=== PATIENT | female | born 1960 | race Caucasian/White ===

== ENCOUNTER → 2018-01-16 10:50 | Outpatient (CLI) | payer MEDICARE, MEDICAID, SELFPAY ==
[2018-01-16 12:20] LABS: Add Manual Diff / Slide Review NO; Basophils Percent Auto 0.8 % (0-2); Eosinophils Percent Auto 2.5 % (2-4); Hematocrit 40.3 % (36-46); Hemoglobin 13.6 g/dL (12.0-16.0); Lymphocytes Percent Auto 20.1 % (25-40); Mean Corpuscular HGB Conc 33.8 % (30-36); Mean Corpuscular Hemoglobin 31.3 PG (26-34); Mean Corpuscular Volume 92.6 fL (80-100); Monocytes Percent Auto 5.1 % (3-14); Neutrophils Absolute Auto 8200 /uL (3000-5900); Neutrophils Percent Auto 71.5 % (50-75); Platelet Count 273 X10^3/uL (150-400); Red Blood Cell Count 4.35 X10^6/uL (4.0-5.2); Red Cell Distribution Width 13.5 % (11.6-14.8); White Blood Cell Count 11.4 X10^3/uL (4.5-11.0)
[2018-01-16 12:57] LABS: Alanine Aminotransferase 19 IU/L (9-52); Albumin 4.9 g/dL (3.5-5.0); Albumin Globulin Ratio 1.9 (1.0-2.8); Alkaline Phosphatase 80 U/L (38-126); Aspartate Aminotransferase 12 IU/L (14-36); Bilirubin Total 0.4 mg/dL (0.2-1.3); Blood Urea Nitrogen 26 mg/dL (7-17); Calcium 10.2 mg/dL (8.4-10.2); Carbon Dioxide 23 mmol/L (22-32); Chloride 104 mmol/L (98-107); Cholesterol 130 mg/dL (140-199); Estimated Glomerular Filt Rate 42.1 mL/min (>60); Globulin 2.6 g/dL (1.7-4.1); Glucose 87 mg/dL (70-100); HDL Cholesterol 43 mg/dL (40-60); HEMOLYSIS < 15 (0-50); LDL Cholesterol Calculated 63 mg/dL (<100); Potassium 4.6 mmol/L (3.4-5.1); Sodium 145 mmol/L (137-145); Total Protein 7.5 g/dL (6.3-8.2); Triglycerides 118 mg/dL (35-150)
[2018-01-16 13:06] LABS: Hemoglobin A1C% w Est Avg Glu 5.8 % (4.0-6.0)
[2018-01-16 14:02] LABS: Appearance Urine UA SL CLOUDY; Bilirubin Urine UA NEGATIVE (NEGATIVE); Color Urine UA YELLOW; Glucose Urine UA NEGATIVE (Normal); Ketones Urine UA TRACE (NEGATIVE); Leukocyte Esterase Urine UA 2+ (NEGATIVE); Nitrite Urine UA NEGATIVE (Negative); Occult Blood Urine UA TRACE-LYSED (Negative); Protein Urine UA NEGATIVE (Negative); Urobilinogen Urine UA 0.2 E.U./dL (0.2)
[2018-01-16 14:32] LABS: RBC Urine 0-1/HPF (0-5/HPF); WBC Urine 10-30/HPF (0-5/HPF)
[2018-01-16 14:33] LABS: Bacteria Urine Many (>30); Culture Indicated Urine Specimen Cultured; Hyaline Casts Urine 5-10/LPF; Squamous Epithelial Cell Urine 1-5 /HPF
== END ==
PROVIDERS: PCP Family Medicine; Visit Provider Family Medicine
DX: D50.0 Iron deficiency anemia secondary to blood loss (chronic) (principal); E03.9 Hypothyroidism, unspecified; R73.09 Other abnormal glucose
CPT/HCPCS: 36415; 80053; 80061; 81003; 81015; 83036; 85025; 87086

== ENCOUNTER → 2018-03-19 10:54 | Outpatient (CLI) | payer MEDICARE, MEDICAID, SELFPAY ==
--- NOTE | 2018-03-19 | DI.CT.S_ITS ---
PROCEDURE: CT LE LT W CON INDICATIONS: NONDISPLACED INTERTROCH FRACTURE LEFT FEMUR TECHNIQUE: Noncontrast 3 mm axial sections acquired through the bony pelvis. Additional 3 mm axial sections acquired through the symptomatic hip joint, with coronal and sagittal reformats. COMPARISON: [facility], CR, XR FEMUR 2+ VIEWS LEFT, 03/07/2018, 16:30. FINDINGS: Image quality: Diagnostic. Bones: Postoperative changes are again evident related to an upper reduction and internal fixation procedure involving the proximal left femoral intertrochanteric fracture. The fracture line demonstrates sclerosis. No residual lucency is appreciated, suggesting healing. No acute or new fractures are evident. There no dislocations. Bone fragments within the region of the joint space is present, particularly noted along the anterior margin of the left hip joint which may represent small avulsed bone fragments from the greater trochanter. Operative changes are again noted related to an open reduction and internal fixation procedure involving the intertrochanteric fracture. A long trochanteric nail is secured in place by single distal interlocking screw and 2 proximal hip screw devices. The hardware appears intact. Soft tissues: The soft tissues overlying the left hip/thigh region are essentially within normal limits. No soft tissue masses or drainable fluid collections are evident. There likely is a left hip effusion. Included portions of the pelvis are grossly unremarkable. No significant atrophy of the muscles of the thigh are evident. IMPRESSION: Anatomic alignment of the healing/healed fracture involving the proximal left intertrochanteric femur fracture, status post ORIF. Dictated by: Mick Mosqueda M.D. on 03/19/2018 at 11:15 Approved by: Mick Mosqueda M.D. on 03/19/2018 at 11:18
== END ==
PROVIDERS: PCP Family Medicine; Visit Provider Orthopaedic Surgery
DX: S72.142D Displaced intertrochanteric fracture of left femur, subsequent encounter for closed fracture with routine healing (principal)
CPT/HCPCS: 73700

== ENCOUNTER → 2018-05-05 10:33 | Outpatient (CLI) | payer MEDICARE, MEDICAID, SELFPAY ==
--- NOTE | 2018-05-05 | DI.MRI.S_ITS ---
PROCEDURE: MR LUMBAR SPINE WO CON INDICATIONS: Lumbar pain with sciatica, right side TECHNIQUE: Noncontrast sagittal T1 spin echo and T2 fast echo, sagittal STIR, axial T1 and T2 fast spin echo through the lumbar spine. In cases with scoliosis, additional coronal T2 fast spin echo may be performed. COMPARISON: [facility], CT, CHEST/ABD/PEL WITH CONTRAST, 05/11/2017, 20:25. FINDINGS: Image quality: Excellent. Alignment and Curvature: There is normal bony alignment. Bone Marrow: Marrow is of normal overall signal. No acute vertebral body compression fractures. Spinal Cord: Conus medullaris terminates at the L1 to level. Visualized cord demonstrates normal signal and size. Paraspinous Soft Tissues: No paravertebral masses. L1-L2: Normal appearance. L2-L3: Mild diffuse disc bulge and bilateral facet arthrosis is seen, no significant canal stenosis or neuroforaminal narrowing. L3-L4: There is broad-based disc bulge and bilateral facet arthrosis with mild central canal stenosis and bilateral neuroforaminal narrowing. L4-L5: Broad-based disc bulge and bilateral facet arthrosis is seen with mild central canal stenosis and mild bilateral neuroforaminal narrowing. L5-S1: Diffuse disc bulge and bilateral facet arthrosis is seen with no significant canal stenosis or neuroforaminal narrowing. IMPRESSION: 1. Degenerative disc bulge and bilateral facet arthrosis at L2-3 through L5-S1 levels with mild central canal stenosis and bilateral neuroforaminal narrowing noted at L3-4 and L4-5 levels. 2. No marrow edema. No compression fracture or spondylolisthesis. Dictated by: Tan Peters M.D. on 05/07/2018 at 9:07 Approved by: Tan Peters M.D. on 05/07/2018 at 9:18
== END ==
PROVIDERS: PCP Family Medicine; Visit Provider Physical Medicine & Rehabilitation
DX: M51.16 Intervertebral disc disorders with radiculopathy, lumbar region (principal); M47.26 Other spondylosis with radiculopathy, lumbar region; M47.27 Other spondylosis with radiculopathy, lumbosacral region; M48.061 Spinal stenosis, lumbar region without neurogenic claudication
CPT/HCPCS: 72148

== ENCOUNTER → 2018-05-25 11:36 | Outpatient (CLI) | payer MEDICARE, MEDICAID, SELFPAY ==
[2018-05-25 12:58] LABS: Add Manual Diff / Slide Review NO; Basophils Absolute Auto 100 /uL (0-100); Basophils Percent Auto 0.6 % (0-2); Eosinophils Absolute Auto 100 /uL (0-450); Eosinophils Percent Auto 0.8 % (2-4); Hematocrit 39.2 % (36-46); Hemoglobin 13.1 g/dL (12.0-16.0); Lymphocytes Absolute Auto 2700 /uL (1100-4500); Lymphocytes Percent Auto 21.4 % (25-40); Mean Corpuscular HGB Conc 33.4 % (30-36); Mean Corpuscular Hemoglobin 31.8 PG (26-34); Monocytes Absolute Auto 800 /uL (0-900); Monocytes Percent Auto 6.4 % (3-14); Neutrophils Absolute Auto 9100 /uL (1500-7000); Neutrophils Percent Auto 70.8 % (50-75); Platelet Count 290 X10^3/uL (150-400); Red Blood Cell Count 4.12 X10^6/uL (4.0-5.2); Red Cell Distribution Width 13.6 % (11.6-14.8); White Blood Cell Count 12.8 X10^3/uL (4.5-11.0)
--- NOTE | 2018-05-25 13:21 | DI.MRI.S_ITS ---
PROCEDURE: MR CERVICAL SPINE WO CON INDICATIONS: Eval TECHNIQUE: Noncontrast sagittal T1 spin echo and T2 fast spin echo, sagittal STIR, foraminal oblique sagittal T2 fast spin echo, and axial gradient echo or T2 fast spin echo through the cervical spine. COMPARISON: [facility], CT, C-SPINE WITHOUT CONTRAST, 05/11/2017, 20:25. FINDINGS: Image quality: Excellent. Alignment and Curvature: There is trace retrolisthesis of C4 on C5. Bone Marrow: Marrow demonstrates normal overall signal. Mild reactive endplate changes are present at C5-6. Schmorl's node is present along the superior endplate of T10. Spinal Cord: Visualized spinal cord has normal size and signal. No cerebellar tonsillar herniation. Paraspinous Soft Tissues: No paravertebral masses. Prevertebral soft tissues are normal in thickness. Discs: Severe desiccation is present at C4-5 and C5-6, mild present remainder of the cervical spine. C2-C3: Minimal disc bulge without spinal stenosis. Minimal right foraminal narrowing. C3-C4: Mild disc bulge with moderate to severe left and moderate right foraminal narrowing with uncovertebral hypertrophy. C4-C5: Mild disc bulge with moderate to severe spinal stenosis. Severe left and moderate to severe right foraminal narrowing with uncovertebral hypertrophy. C5-C6: Mild disc bulge with severe spinal stenosis and mild flattening of the cord. There is mild compromise of the right lateral recess secondary to asymmetric bulge. Severe bilateral foraminal narrowing with uncovertebral hypertrophy. C6-C7: Mild disc bulge with small superimposed posterior central protrusion. There is mild/moderate spinal stenosis with mild bilateral foraminal narrowing. C7-T1: No disc bulge, spinal stenosis or foraminal narrowing. IMPRESSION: 1. Multilevel disc bulges, spinal stenosis and foraminal narrowing. 2. Spinal stenosis is most prominent at C5-6 secondary to disc bulge. 3. Prominent multilevel foraminal narrowing most prominent at C4-5 and C5-6 secondary to uncovertebral arthropathy. Dictated by: Christie Roa M.D. on 05/25/2018 at 14:01 Approved by: Christie Roa M.D. on 05/25/2018 at 15:08
== END ==
PROVIDERS: PCP Family Medicine; Visit Provider Physical Medicine & Rehabilitation
DX: M50.11 Cervical disc disorder with radiculopathy, high cervical region (principal); M48.02 Spinal stenosis, cervical region; N18.9 Chronic kidney disease, unspecified
CPT/HCPCS: 36415; 72141; 85025

== ENCOUNTER → 2018-08-22 07:31 | Outpatient (CLI) | payer MEDICARE, MEDICAID, SELFPAY ==
[2018-08-22 08:21] LABS: Add Manual Diff / Slide Review NO; Basophils Absolute Auto 100 /uL (0-100); Basophils Percent Auto 0.8 % (0-2); Eosinophils Absolute Auto 500 /uL (0-450); Eosinophils Percent Auto 4.5 % (2-4); Hematocrit 38.3 % (36-46); Hemoglobin 12.8 g/dL (12.0-16.0); Lymphocytes Absolute Auto 2700 /uL (1100-4500); Lymphocytes Percent Auto 26.1 % (25-40); Mean Corpuscular HGB Conc 33.4 % (30-36); Mean Corpuscular Hemoglobin 32.3 PG (26-34); Mean Corpuscular Volume 96.8 fL (80-100); Monocytes Absolute Auto 500 /uL (0-900); Monocytes Percent Auto 5.2 % (3-14); Neutrophils Absolute Auto 6600 /uL (1500-7000); Neutrophils Percent Auto 63.4 % (50-75); Platelet Count 289 X10^3/uL (150-400); Red Blood Cell Count 3.95 X10^6/uL (4.0-5.2); Red Cell Distribution Width 14.5 % (11.6-14.8); White Blood Cell Count 10.5 X10^3/uL (4.5-11.0)
[2018-08-22 08:22] LABS: Appearance Urine UA CLEAR; Bilirubin Urine UA NEGATIVE (NEGATIVE); Color Urine UA YELLOW; Glucose Urine UA NEGATIVE (Negative); Ketones Urine UA NEGATIVE (NEGATIVE); Leukocyte Esterase Urine UA 1+ (NEGATIVE); Nitrite Urine UA NEGATIVE (Negative); Occult Blood Urine UA NEGATIVE (Negative); Protein Urine UA NEGATIVE (Negative); Urobilinogen Urine UA 0.2 E.U./dL (0.2)
[2018-08-22 08:26] LABS: RBC Urine None Seen (0-5/HPF)
[2018-08-22 08:29] LABS: Hemoglobin A1C% w Est Avg Glu 5.6 % (4.0-6.0)
[2018-08-22 08:33] LABS: Amorphous Sediment Urine 1+; Bacteria Urine Many (>30); Culture Indicated Urine Cult Not Indicated; Squamous Epithelial Cell Urine 10-30 /HPF (0-5/HPF); WBC Urine 1-5/HPF (0-5/HPF)
[2018-08-22 08:44] LABS: Alanine Aminotransferase 12 IU/L (9-52); Albumin 4.7 g/dL (3.5-5.0); Albumin Globulin Ratio 1.6 (1.0-2.8); Alkaline Phosphatase 70 U/L (38-126); Aspartate Aminotransferase 17 IU/L (14-36); Bilirubin Total 0.5 mg/dL (0.2-1.3); Blood Urea Nitrogen 27 mg/dL (7-17); Calcium 9.6 mg/dL (8.4-10.2); Carbon Dioxide 23 mmol/L (22-32); Chloride 97 mmol/L (98-107); Cholesterol 108 mg/dL (140-199); Estimated Glomerular Filt Rate 35.5 mL/min (>60); Globulin 2.9 g/dL (1.7-4.1); Glucose 88 mg/dL (70-100); HDL Cholesterol 40 mg/dL (40-60); HEMOLYSIS < 15 (0-50); LDL Cholesterol Calculated 50 mg/dL (<100); Potassium 4.9 mmol/L (3.4-5.1); Sodium 135 mmol/L (137-145); Total Protein 7.6 g/dL (6.3-8.2); Triglycerides 91 mg/dL (35-150)
[2018-08-22 09:11] LABS: Thyroid Stimulating Hormone 3.63 uIU/mL (0.47-4.68)
== END ==
PROVIDERS: PCP Family Medicine; Visit Provider Family Medicine
DX: E03.9 Hypothyroidism, unspecified (principal); E11.9 Type 2 diabetes mellitus without complications; E78.5 Hyperlipidemia, unspecified; N18.9 Chronic kidney disease, unspecified; I12.9 Hypertensive chronic kidney disease with stage 1 through stage 4 chronic kidney disease, or unspecified chronic kidney disease
CPT/HCPCS: 36415; 80053; 80061; 81003; 81015; 83036; 84443; 85025

== ENCOUNTER → 2018-08-29 07:08 | Outpatient (CLI) | payer MEDICARE, MEDICAID, SELFPAY ==
--- NOTE | 2018-08-29 07:10 | DI.NM.S_ITS ---
PROCEDURE: NM ZEV PERF SPECT R&S PHARM Rest and pharmacological stress myocardial perfusion SPECT with gated imaging and ejection fraction RADIOPHARMACEUTICAL: 23.9 mCi Tc-99m tetrafosmin IV at rest and 25.7 mCi Tc-99m tetrafosmin IV at peak effect of pharmacological stress. [id number] was performed. INDICATIONS: COPD, Tabacco user, Chest pain, CAD TECHNIQUE: Radiopharmaceutical was injected at peak stress test, and also at rest. SPECT images were obtained. SPECT myocardial perfusion images were displayed in short axis, horizontal long axis, and vertical long axis views. Gated images were reviewed using SideStep software. COMPARISON: None. CARDIAC STRESS: A pharmacologic stress test was performed under the supervision of an attending staff, using an infusion of Lexiscan . Hemodynamic data: There is normal heart rate response to pharmacologic stress. Blood pressure was not recorded at peak. Symptoms: The patient denied anginal chest pain. Aminophylline: Not given. EKG: No diagnostic changes of ischemia; no ectopy. FINDINGS: Raw data: There is good myocardial uptake of radiotracer. No significant motion artifacts. Yjtl-xx-izdrn ratio is 0.26 (normal is less than 0.38 for tetrafosmin tracer). Left ventricle function: Gated images demonstrate normal left ventricular wall thickening. No segmental wall motion abnormalities. No transient ischemic dilation; TID is 0.72 (normal less than 1.3). Left ventricle resting end diastolic volume is 64 mL. Left ventricle stress ejection fraction is >75% ; normal range is above 45%. Myocardial perfusion: There is a very small apical and apical septal defect on supine images which completely resolves on prone imaging consistent with breast attenuation artifact. Otherwise there is normal distribution of activity in the left ventricular myocardium. No fixed or reversible perfusion defects. IMPRESSION: Normal myocardial perfusion study without evidence of ischemia or scar. Small, hyperdynamic left ventricular cavity. Low-risk study. This is similar to the prior myocardial perfusion study on 04/05/2017. Dictated by: Gregory Callaway M.D. on 08/30/2018 at 18:04 Approved by: Gregory Callaway M.D. on 08/30/2018 at 18:09
--- NOTE | 2018-08-29 08:43 | PM.TREADMILL ---
Cardiac Stress Test Report Referral & Results Date Patient Seen: 08/29/18 Time Patient Seen: 08:30 Requesting provider: Yari Celestin Indication: Chest pain Rest ECG: NSR Procedure Note: After both written and verbal informed consent the patient had an IV started by the diagnostic imaging RN, and then was hooked up to the treadmill monitoring system. The Lexiscan material, and then the Cardiolite tracer, were administered sequentially. The patient was unable to tolerate walking on the treadmill for more than about 30 seconds, and we converted her to a resting Lexiscan. An additional 3 min was spent monitoring the patient while supine on the gurney. The patient had a normal response to all infused materials. Impression: Successful Lexiscan. Will wait perfusion imaging. Please note: Actual ECG tracings can be found in the PACS system.
== END ==
PROVIDERS: PCP Family Medicine; Referring Provider Orthopaedic Surgery Orthopaedic Surgery of the Spine; Visit Provider Family Medicine
DX: R07.9 Chest pain, unspecified (principal); I25.118 Atherosclerotic heart disease of native coronary artery with other forms of angina pectoris; J44.9 Chronic obstructive pulmonary disease, unspecified; Z72.0 Tobacco use
CPT/HCPCS: 78452; 93016; 93017; 93018; A9502; J2785

== ENCOUNTER → 2018-09-24 10:14 | Outpatient (CLI) | payer MEDICARE, MEDICAID, SELFPAY ==
[2018-09-24 11:37] LABS: Add Manual Diff / Slide Review NO; Basophils Absolute Auto 100 /uL (0-100); Basophils Percent Auto 0.5 % (0-2); Eosinophils Absolute Auto 400 /uL (0-450); Hematocrit 37.8 % (36-46); Hemoglobin 12.9 g/dL (12.0-16.0); Lymphocytes Absolute Auto 2300 /uL (1100-4500); Lymphocytes Percent Auto 22.9 % (25-40); Mean Corpuscular HGB Conc 34.1 % (30-36); Mean Corpuscular Hemoglobin 32.3 PG (26-34); Mean Corpuscular Volume 94.7 fL (80-100); Monocytes Absolute Auto 600 /uL (0-900); Monocytes Percent Auto 5.6 % (3-14); Neutrophils Absolute Auto 6700 /uL (1500-7000); Platelet Count 264 X10^3/uL (150-400); Red Cell Distribution Width 13.8 % (11.6-14.8)
[2018-09-24 11:54] LABS: BUN Creatinine Ratio 24.6 (6-22); Blood Urea Nitrogen 32 mg/dL (7-17); Calcium 9.3 mg/dL (8.4-10.2); Carbon Dioxide 28 mmol/L (22-32); Chloride 102 mmol/L (98-107); Estimated Glomerular Filt Rate 41.9 mL/min (>60); Glucose 111 mg/dL (70-100); HEMOLYSIS < 15 (0-50); Potassium 4.6 mmol/L (3.4-5.1); Sodium 139 mmol/L (137-145)
[2018-09-24 14:53] LABS: Hemoglobin A1C% w Est Avg Glu 5.7 % (4.0-6.0)
== END ==
PROVIDERS: PCP Family Medicine; Visit Provider Orthopaedic Surgery Orthopaedic Surgery of the Spine
DX: R73.9 Hyperglycemia, unspecified (principal); Z51.81 Encounter for therapeutic drug level monitoring; E61.1 Iron deficiency; Z01.818 Encounter for other preprocedural examination
CPT/HCPCS: 36415; 80048; 83036; 85025; 93005

== ENCOUNTER 2018-10-10 05:57 | Inpatient (IN) | payer MEDICARE, MEDICAID, SELFPAY ==
[2018-10-02 12:55] VITALS: BMI 29.0
[2018-10-10] VITALS (17 sets, daily range): BP systolic 120–160; BP diastolic 61–118; PULSE 65–108; RESP 12–20; TEMP 36.2–37; O2SAT 88–98; BMI 29.9
--- NOTE | 2018-10-10 | DI.RAD.S_ITS ---
PROCEDURE: XR CERVICAL SPINE 2V OR 3V INDICATIONS: C4-5, C5-6 ACDF TECHNIQUE: 3 intraoperative fluoroscopic spot view(s) of the cervical spine were acquired. COMPARISON: None. FINDINGS: Anterior cervical fusion hardware is seen from C4-C6 in expected position. Support tubes and monitoring wires are present. IMPRESSION: Expected intraoperative appearance of anterior cervical spine fusion. Dictated by: Lauren Brown M.D. on 10/10/2018 at 10:59 Approved by: Lauren Brown M.D. on 10/10/2018 at 11:01
[2018-10-10] MEDS: LACTATED RINGERS 1,000 ML 42 ML IV ×2 (07:06→09:26)
[2018-10-10] MEDS: MIDAZOLAM 2 MG/2 ML VIAL IV (07:43)
[2018-10-10] MEDS: CLINDAMYCIN 600 MG/50 ML PIGGYBACK 50 MG IV (07:45)
--- NOTE | 2018-10-10 08:09 | PM.PREOP ---
Pre-operative Note Interval Note History & Physical reviewed/Exam performed by Physician: Yes Changes to H&P: No
[2018-10-10] MEDS: ACETAMINOPHEN IV 1,000 MG/100 ML VIAL 400 MG IV (08:20)
--- NOTE | 2018-10-10 08:22 | SUR.OPER ---
Supine, head on gel donut. Arms padded with gel pads, tucked at sides, towel roll under shoulders. Safety belt at thigh. Legs uncrossed.
--- NOTE | 2018-10-10 10:31 | P.OP_ITS ---
Operative Date/Time/Diagnoses Date of procedure: 10/10/18 Time of procedure: 07:54 Pre-op diagnosis: 1. C4-5, C5-6 spinal stenosis 2. C4-5, C5-6 spondylosis with radiculopathy Post-op diagnosis: same Procedure & Clinicians Procedure: 1. C4-5, C5-6 anterior cervical diskectomy and fusion 2. C4-5, C5-6 anterior interbody cage placement 3. C4-5, C5-6 anterior instrumentation with plate and screw placement in C4, C5 and C6 vertebrae 4. Utilization of microsurgical technique and operating microscope Same procedure as scheduled: Yes Indications: Patient has been having chronic neck pain and worsening cervical radiculopathy. Patient failed multiple conservative management with worsening pain weakness and numbness in her upper extremity. Patient has been having difficulty performing activity of daily living. After discussing risks benefits of treatment options, patient elected proceed with surgery. Surgeon: Elo Asif Processor Helper: Anastasiya Mustafa'Brien Click Yes if Unassisted: No Anesthesia Type: General Operative Notes Closure Type: primary Specimen(s): none sent Prosthetic devices, grafts, tissues, transplants, or devices: Globus extend plate, PEEK cages, screws Applied: catheter Estimated Blood Loss (mL): 20 Blood products transfused: none Procedure in detail: Patient was seen in the preoperative area. Risks and benefits of the surgery was discussed with the patient. Operative consent was obtained and placed in the chart. Patient was then taken to the operative room. Prophylactic antibiotic was given less than 0.5 hr prior to skin incision. General anesthesia was administered. Patient was placed into a supine position on her radiolucent table. Bilateral shoulders were taped down to allow proper C- arm imaging. Anterior cervical area was prepped and draped in a sterile fashion. Time-out was performed at this time. Using lateral C-arm imaging, the level between C4 and C6 was identified and marked on patient's neck. A oblique incision from midline towards medial border of sternocleidomastoid muscle was made. The platysma muscle was incised in line with skin incision. Metzenbaum scissor was used to develop the plane between the medial border of sternocleidomastoid d and the strap muscles medially. The carotid sheath and its contents were identified and protected behind the hand- held retractor during the entire case. The plane between the carotid sheath and strap muscles was developed with Metzenbaum scissors. Dissection was made down to the level of the anterior cervical fascia. Longus colli muscle was incised on the anterior aspect of vertebral bodies bilaterally from C4-C6. Spinal needle was placed into the C4-6 disc space and confirmed with lateral C-arm imaging. Using microsurgical technique and operative microscope, anterior cervical diskectomy was performed at C4-5 and C5-6 level. This was done by removing the disc material, removing the anterior and posterior osteophytes posterior longitudinal ligaments along with performing bilateral foraminotomies at both levels. Patient was found to have severe central and foraminal stenosis at both levels. Patient's stenosis was fully decompressed after decompression was completed. After the diskectomy was completed, 2 anterior interbody cages were obtained. The cages were packed with DBM bone grafting material. One cage each along with the bone grafting material was then packed into the interbody spaces from C4-C6 with one cage into each interbody level. After the cages were placed, the anterior cervical plate was stabilized to the C4-C6 vertebrae using 2 screws at each each level. Total 6 screws were placed. After confirming placement of the hardware with AP and lateral C-arm imaging, the screws were locked into the plate using the locking mechanism and torque limiting screwdriver. After the hardware was placed and confirmed with AP and lateral C-arm imaging, the wound was irrigated with sterile normal saline. The platysma muscle and the subcutaneous tissue was closed with 2-0 Vicryl. The skin was closed with 4-0 Monocryl and Steri-Strips. Patient tolerated the procedure well. Patient was transferred recovery room in stable condition. There were no complications. Complications: none Condition: stable Disposition: PACU Plan for aftercare: Admit to inpatient hospital
[2018-10-10] MEDS: HYDROMORPHONE 2 MG INJ 0.25 MG IV ×3 (10:41→11:12)
[2018-10-10] MEDS: ALBUTEROL 2.5 MG/3 ML NEB (ADULT) INH (10:48)
--- NOTE | 2018-10-10 11:00 | SUR.PHASEI ---
Pt arrived mildly distresse, c/o pain, c/o trouble breathing. Albuterol inhaler used x2 per Dr. Damico. Lungs very tight with insp and exp rhonchi throughout. Albuterol neb provided. Pt able to nap intermittently.
[2018-10-10] MEDS: hydrOXYzine 50 MG/ML INJ 25 MG IM (11:06)
--- NOTE | 2018-10-10 11:14 | SUR.PHASEI ---
Verified ok to given pt vistaril with pharmacist
--- NOTE | 2018-10-10 11:31 | SUR.PHASEI ---
pt mostly dozing, rated pain 8/10. Report called to Chara. Bustamante notified/shown bruises to upper chest.
[2018-10-10] MEDS: OXYCODONE IR 5 MG TABLET PO ×4 (11:38→23:41)
--- NOTE | 2018-10-10 11:55 | SUR.PHASEI ---
Pt able to swallow applesauce without difficulty. Oxycodone provided. Pt transferred to the floor on 2l O2. VS stable. O2 sat 93% 2lNC. IV saline locked. Two small dark red spots and one light pink spot of drainage to neck drsg. Collar in place. Upper and lower dentures in place. Belongings bag with patient. Report to Katlin.
[2018-10-10] MEDS: SODIUM CHLORIDE 0.9% 1,000 ML 100 ML IV ×2 (14:06→23:53)
[2018-10-10] MEDS: INSULIN ASPART 100 UNIT/ML INSULN PEN SUBCUT ×2 (14:09→17:25)
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
--- NOTE | 2018-10-10 14:38 | PC.NURSE ---
Addendum entered by Katlin Alexandra R.N. 10/10/18 15:22: Pt refuses to have an ADA diet. States that she does not eat that kind of food. BS this afternoon 198. Resting comfortably, given percolone for discomfort. Original Note: Pt has a dressing to anterior neck with a small amount of bloody drainage. She is wearing a collar for comfort. Given 5mg of oxycodone for complaints of pain 11/27. Pt up now and working with physical therapy, she ambulated in the room and is now sitting up in chair comfortably. She has NS infusing at 100cc/hr and is tolerating well.
[2018-10-10] MEDS: GABAPENTIN 300 MG CAPSULE PO ×2 (14:43→20:56)
[2018-10-10] MEDS: CLINDAMYCIN 900 MG/50 ML PIGGYBACK 50 MG IV ×2 (16:01→23:52)
[2018-10-10] MEDS: HYDROMORPHONE 0.5 MG INJ IV ×2 (16:01→20:55)
[2018-10-10] MEDS: NICOTINE 14 PATCH 14 MG TOP (16:02)
[2018-10-10] MEDS: ONDANSETRON 4 MG/2 ML INJ IV (17:25)
[2018-10-10] MEDS: FLUTICASONE/SALMETEROL 250/50 60 PUFF DISKUS INH (20:56)
[2018-10-10] MEDS: DOCUSATE 100 MG CAPSULE PO (20:56)
[2018-10-10] MEDS: ATORVASTATIN 20 MG TABLET PO (20:56)
[2018-10-10] MEDS: SENNOSIDES 8.6 MG TABLET 17.2 MG PO (20:56)
[2018-10-10] MEDS: ACETAMINOPHEN 325 MG TABLET 650 MG PO (20:56)
--- NOTE | 2018-10-10 21:58 | PC.NURSE ---
Dee Dee shift note: Anterior cervical dressing changed as ordered, moderate amount of sanguineous saturation, scant noted to steri strips and intact. Dressing with non adherent dressing and secured with Tegaderm.
[2018-10-10] MEDS: hydrOXYzine pamoate 25 MG CAPSULE PO (23:40)
[2018-10-11] MEDS: OXYCODONE IR 5 MG TABLET PO ×2 (02:56→06:17)
[2018-10-11 03:00] VITALS: BP 135/85; PULSE 87; RESP 18; TEMP 36.5; O2SAT 95
[2018-10-11] MEDS: HYDROMORPHONE 0.5 MG INJ IV (03:53)
--- NOTE | 2018-10-11 04:51 | PC.NURSE ---
Assumed care of pt at 2300 on 10/10/18. Pt resting in bed during bedside hand-off. Drsg to Ant neck with small spot of sang drainage. Soft collar in place. CMS+. Medicating per may for post-op pain. Pt reports 5 mg oxycodone does not reduce pain level much. Medicating with IV Dilaudid for break-through pain. Amos removed at MN per pt request and nurse driven protocol. Up to bathroom to void since amos removal. 1 pa w/fww. Steady on feet. Calling appropriately for needs. Bed alarm on.
[2018-10-11] MEDS: FLUTICASONE/SALMETEROL 250/50 60 PUFF DISKUS INH (06:08)
[2018-10-11] MEDS: ALBUTEROL/IPRATROPIUM MDI 1 PUFF INH (06:08)
[2018-10-11] MEDS: ALBUTEROL HFA 60 PUFF/8 GM INH INH (06:09)
[2018-10-11] MEDS: ACETAMINOPHEN 325 MG TABLET 650 MG PO (06:16)
[2018-10-11] MEDS: hydrOXYzine pamoate 25 MG CAPSULE PO (06:17)
[2018-10-11 08:00] VITALS: BP 137/76; PULSE 75; RESP 18; TEMP 36.6; O2SAT 94
--- NOTE | 2018-10-11 08:28 | P.DS_ITS ---
History of Present Illness Date Patient Seen: 10/11/18 Time Patient Seen: 08:23 Chief complaint: Cervical Fusion Anterior Narrative: Hospital day 2, postop day 1 following C4-5, C5-6 ACDF with cage and anterior instrumentation by Dr. Asif. Patient remained stable postoperatively. Has noted some increased pain with movement. Has been getting oxycodone 5 mg but required Dilaudid IV for breakthrough pain. She states she is able to swallow well. She has had some improvement in arm pain since surgery but still notes tingling to her fingers. She was up with PT yesterday and did well. She does need to do stairs today before going home. She does have a roommate this going to be staying with her for the next week. Patient voiding well. Discharge Providers Date of admission: 10/10/18 05:57 Discharge Date: 10/11/18 Primary care physician: Yari Celestin DO Consults: 10/02/18 13:45 Consult to Respiratory Therapy Evaluate & Treat Comment: C3-6 fusion 10/10-Every day smoker, requests patch Physician Instructions: Evaluate and treat 10/10/18 11:58 Consult to Occupational Therapy Evaluate & Treat Comment: Physician Instructions: Evaluate and treat Consult to Physical Therapy Evaluate & Treat Comment: Physician Instructions: Evaluate and Treat Discharge provider: Varghese Rodríguez PA-C Summary Discharge Diagnosis: Status post C4-5, C5-6 ACDF, cage, anterior instrumentation Hospital Course: Patient brought to hospital on 10/10/2018 for above noted surgery. She remained stable postoperatively. Pain medication was adjusted. Patient progressed well with physical therapy. Ready for discharge home on postop day 1. Status at Discharge Cognitive/behavioral status at discharge: oriented Functional status at discharge: independent ambulation Overall status at discharge: patient is progressing back to baseline Time Spent with Patient Less than 30 minutes Exam Vital Signs (past 8 hours): - 10/11/18 03:00 10/11/18 08:00 Temperature 97.7 F 98 F Pulse Rate 87 75 Respiratory Rate 18 18 Blood Pressure 135/85 137/76 Pulse Oximetry 95 94 Oxygen Delivery Method Room Air Oxygen Flow Rate 0 Narrative Exam Narrative: Alert, oriented no acute distress resting in bed. Neck. Soft cervical collar in place. Dressing to left anterior neck is dry with slight area of shadowing. No signs of infection or inflammation. Arms. Graphic Coordinator strong and equal. Pulses symmetrical. Some slight decreased sensation to finger tips bilateral. Good strength on elbow flexion and extension and shoulder AB duction. Discharge Plan Discharge Plan Patient Disposition: Home Discharge comment: Discharge home today after cleared by PT. Patient to wear soft collar for the next 1-2 days and then may DC if doing well. Avoid excessive head movement. No lifting or carrying more than 5-10 lb. Discharge Med Rec/Prescriptions Prescriptions: New acetaminophen 325 mg Tablet 650 mg PO Q6HR PRN (Reason: Pain, Mild (1-3)) Qty: 30 RF: 0 hydroxyzine pamoate 25 mg Capsule 25 mg PO Q4HR PRN (Reason: Nausea And Vomiting) Qty: 20 RF: 0 oxycodone 10 mg tablet 10 mg PO Q4-6H PRN (Reason: pain) Qty: 30 RF: 0 Continued chromium picolinate 400 MCG tablet 3 tab PO QDAY Qty: 0 RF: 0 budesonide 0.5 mg/2 mL suspension for nebulization 0.5 mg INHALATION QDAY PRN (Reason: COPD) Qty: 1 RF: 3 albuterol sulfate [Ventolin HFA] 90 mcg/actuation HFA aerosol inhaler 1 puff INHALATION QIDP PRN (Reason: shortness of breath) Qty: 18 RF: 3 furosemide 20 mg tablet 20 mg PO QDAY Qty: 30 RF: 0 lisinopril 20 mg tablet 20 mg PO QDAY Qty: 90 RF: 0 atorvastatin [Lipitor] 20 mg tablet 20 mg PO QHS Qty: 90 RF: 0 fluticasone propion-salmeterol [Advair Diskus] 250-50 mcg/dose blister with d evice 1 inhalation INHALATION BID Qty: 60 RF: 2 Combivent Respimat 20-100 mcg/actuation mist 1 puff INHALATION BIDP PRN (Reason: SOB) Qty: 1 RF: 5 omeprazole 40 MG capsule,delayed release(DR/EC) 40 mg OR QDAY PRN (Reason: Gerd) RF: 0 gabapentin [Neurontin] 300 mg capsule 300 mg PO TID RF: 0 Breo Ellipta 200-25 mcg/dose blister with device 1 inhalation INHALATION QAM RF: 0 Glucose: Test Strips 1 str miscellaneous QID RF: 0 Lancet: Device 1 box miscellaneous QID RF: 0 Nebulizer: Portable Unit 1 units miscellaneous DIRECTED RF: 0 Follow up/Referrals: Yari Celestin DO [Primary Care Provider] - Provider Discharge Instructions Diet: Diet as Tolerated Diet comment: Use liquid to soft foods for the next few days. Skin/Wound/Dressing Care Report to your healthcare provider any signs of infection, such as:: chills, fever, night sweats, increased pain, unusual drainage and unusual redness Dressing: Keep dressing to neck area clean and dry. Discharge Data Primary Care Provider: Yari Celestin Attending Provider: Elo Asif Admit Date/Time: 10/10/18 05:57 Quality VTE Deep Vein Thrombosis/Pulmonary Embolism Present on Admission: No
[2018-10-11] MEDS: FUROSEMIDE 20 MG TABLET PO (08:48)
[2018-10-11] MEDS: LISINOPRIL 20 MG TABLET PO (08:48)
[2018-10-11] MEDS: GABAPENTIN 300 MG CAPSULE PO (08:48)
[2018-10-11] MEDS: DOCUSATE 100 MG CAPSULE PO (08:48)
[2018-10-11] MEDS: INSULIN ASPART 100 UNIT/ML INSULN PEN SUBCUT (08:51)
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
[2018-10-11] MEDS: OXYCODONE IR 10 MG TABLET PO (09:21)
--- NOTE | 2018-10-11 10:16 | PT.IPTN ---
Current Diagnoses Other spondylosis with radiculopathy, cervical region (10/10/18) Spinal stenosis, cervical region (10/10/18) Surgery Performed Operation Date: 10/10/18 07:45 Actual Procedures p c4-5, c5-6 acdf with anterior instrumentation - Elo Asif MD Physical Therapy Treatment Note M2 PT-IP Current Condition Start: 10/10/18 15:23 Freq: NEEDED Status: Active Protocol: Document 10/10/18 14:15 AB (Rec: 10/10/18 15:32 AB [id number]) Physical Therapy Current Condition Current Condition Evaluation Date 10/10/18 Treatment Diagnosis s/p C 4-6 ACDF; difficulty in walking Onset Date 10/10/18 Precautions Cervical Spine Precautions Soft Collar for Comfort No Heavy Lifting Log Roll M3 PT-IP Subjective Start: 10/10/18 15:23 Freq: NEEDED Status: Active Protocol: Document 10/11/18 10:05 SA (Rec: 10/11/18 10:16 SA [id number]) Subjective Physical Therapy Visit Type Type Treatment Note Visit Start Time 09:32 Visit Stop Time 09:46 Total Visit Minutes 14 Number of CHIEF COMPLIANCE OFFICER Visits 1 Physical Therapy Visit Comments Patient Comments pt agreeable to do PT. Plan to d/c home this AM after stair training. Therapy Pain Assessment Pain When Pain Assessed During Mobility Pain Present Pain Present Pain Reported Location hip Intensity 4 Scale Used Numeric (1 - 10) Pain Management Techniques Modification of Treatment Re-positioning Timing of Activity with Medications M4 PT-IP Mobility and Gait Start: 10/10/18 15:23 Freq: NEEDED Status: Active Protocol: Document 10/11/18 10:05 SA (Rec: 10/11/18 10:16 SA [id number]) PT-Bed Mobility Assessment Supine to Sit Supine to Sit Independent Sit to Supine Sit to Supine Standby Assistance Scooting Scooting to Edge of Bed Standby Assistance Scooting Up and Down in Bed Standby Assistance PT-Transfer Assessment Sit to and From Stand Sit to and from Stand Standby Assistance Equipment Transfer Assistive Device None Gait Belt Orthotic/Prosthetic Devices or Brace: No Transfers Transfer Destination Bed Chair Transfer Technique Stand Step Pivot Transfer Ability Level of Assist Standby Assistance Comments Mobility Comments Pt IND-SBA with all mobilities , understands precautions and adheres to them. Soft collar donned. Gait Assessment Gait Gait Assistance Required: Standby Assistance Distance (Feet) 125 Able to Maintain Weight Bearing Status Yes During Gait Assistive Devices Assistive Device None Gait Belt Orthotic/Prosthetic Devices or Brace: Yes Gait Deviations General Gait Pattern Antalgic Factors Limiting Gait Function Factors Limiting Gait Function Decreased Activity Tolerance Decreased Strength Limited Range of Motion Pain Comments Gait Comments Gait training in albert with cues for pacing and PLB as pt becomes SOB. Pt has c/o LE fatigue that she states is baseline for her. 02 sats 90% and HR 120 after gait training and stairs, on RA. Stair Climbing Assessment Evaluation Level of Assist On Stairs Contact Guard Assistance Devices Stair Climbing Assistive Devices Left Railing Right Railing Technique/Endurance Stair Climbing Direction Ascend and Descend Stair Climbing Technique Step to Step Number of Steps Climbed 3 Stair Climbing Set # Repetitions (reps) 2 Comments Stair Climbing Comments Pt with step to gait pattern and use of B rails, CGA with cues for PLB, safety and precautions. M5 PT-IP Objective Assessments Start: 10/10/18 15:23 Freq: NEEDED Status: Active Protocol: Document 10/10/18 14:15 AB (Rec: 10/10/18 15:32 AB [id number]) Orientation Orientation/Cognition Level of Alertness Alert Orientation Name Age Birthday Month Date Year Day of Week Place Situation Language Function Ability No Deficits Noted Safety Awareness Understands Safety Issues Decreased Safety Awareness Gross Range of Motion Lower Extremity ROM Assessment Left Impaired Impairments L knee flexion: up to ~ 70 deg Strength Lower Extremity Strength Assessment Left Impaired Hip 3/5 Knee 3+/5 Coordination Assessment Gross Coordination Gross Coordination WNL Sensation Assessment Sensation Gross Sensation WNL Muscle Tone Muscle Tone WNL Yes M6 PT-IP Treatment Start: 10/10/18 15:23 Freq: NEEDED Status: Active Protocol: Document 10/11/18 10:05 SA (Rec: 10/11/18 10:16 SA [id number]) Physical Therapy Treatment Education Education Provided Precautions Post-Op Packet Safety Brace Education Urmila Parada Patient M7 PT-IP Assessment and Plan Start: 10/10/18 15:23 Freq: NEEDED Status: Active Protocol: Document 10/11/18 10:05 SA (Rec: 10/11/18 10:16 SA [id number]) PT Summary Assessment and Plan Summary Impairments Pain ROM Strength Balance Bed Mobility Transfers Gait Activity Tolerance Progress Towards Goals Progressing Toward Goals Safe For Discharge Assessment Summary Pt to have roommate at home to help for first week. IND-SBA with mobility and gait and CGA with stairs. Adheres to cervical precautions and plans to attempt smoking cessation. Cleared for d/c home today. Recommendations To Nursing Amount of Assist Needed 1 Person Assist Discharge Recommendations PT Discharge Recommendations Home with Assistance
--- NOTE | 2018-10-11 11:05 | PC.NURSE ---
Discharge pt states pain not controlled with 5mg oxy, spoke with PA and order for 10mg obtained. pt received this and stated pain down to 6/10 which is good for her. Up independently in the room. Soft collar in place. Scant bloody drainage on dressing but is otherwise intact. d/c instructions provided to pt. Aware to contact MD for any additional questions or concerns as well as for f/u apts. PIV removed without issue. Left in w/c with RN escort to vehicle with friend. Pt states she took all belongings with her.
--- NOTE | 2018-10-11 12:37 | CM.IDA ---
Initial DCP Assessment Note: Pt is a 58 yo female, resident of [place], now POD#2 from spinal surgery w/ Dr Asif PCP: Yari Celestin Payer: Medicare/Medicaid Reviewed chart, pt discussed in multidisciplinary rounds this morning. Therapy has cleared pt for return home w/roommate to assist and pt has planned for home, DC order from Ortho PA has already been initiated this morning. No needs expected from DC planning team although will remain available in case this changes today. SAEED Osuna
== END 2018-10-11 11:00 | disposition home or self-care (01) | DRG 473 ==
PROVIDERS: Admitting Provider Orthopaedic Surgery Orthopaedic Surgery of the Spine; PCP Family Medicine; Visit Provider Orthopaedic Surgery Orthopaedic Surgery of the Spine
PROC: 0RG20A0 Fusion of 2 or more Cervical Vertebral Joints with Interbody Fusion Device, Anterior Approach, Anterior Column, Open Approach (ICD-10-PCS; principal; 2018-10-10 07:45)
DX: M50.20 Other cervical disc displacement, unspecified cervical region (principal); M48.02 Spinal stenosis, cervical region; M54.12 Radiculopathy, cervical region; M50.322 Other cervical disc degeneration at C5-C6 level; J44.9 Chronic obstructive pulmonary disease, unspecified; I10 Essential (primary) hypertension; E11.9 Type 2 diabetes mellitus without complications
CPT/HCPCS: 72040; 76000; 82962; 97161; 97165; 97530; 97535; C1776; J0131; J1100; J1170; J2250; J2405; J2704; J3010; J3410; J7613

== ENCOUNTER → 2018-11-01 11:01 | Outpatient (CLI) | payer MEDICARE, MEDICAID, SELFPAY ==
[2018-10-10 14:29] VITALS: BMI 29.9
--- NOTE | 2018-11-01 | DI.CT.S_ITS ---
PROCEDURE: CT CERVICAL SPINE WO CON INDICATIONS: Spondylosis without myelopathy or radiculopathy, TECHNIQUE: Noncontrast 3 mm thick sections acquired from the skull base to the T4 level. Sagittal and coronal reformats were then constructed. For radiation dose reduction, the following was used: automated exposure control, adjustment of mA and/or kV according to patient size. COMPARISON: [facility], MR, MR CERVICAL SPINE WO CON, 05/25/2018, 11:46. [facility], CR, XR CERVICAL SPINE 2V OR 3V, 10/10/2018, 8:21. [facility], CT, C-SPINE WITHOUT CONTRAST, 05/11/2017, 20:25. FINDINGS: Image quality: Excellent. Bones: Postoperative changes are seen, with an anterior cervical spine fusion plate at the C4, C5, and C6 levels. The fusion plate appears well seated. No findings of hardware failure or hardware loosening are seen. Disc spacers are seen throughout the fused region. No displaced fractures are seen. No suspicious lytic or blastic lesions are seen. Soft tissues: Prevertebral soft tissues are normal in thickness. No paravertebral hematomas. No apical pneumothoraces. Mild emphysematous changes can be seen at the lung apices. IMPRESSION: Unremarkable fixation hardware. Incidental note is made of: Emphysematous changes Dictated by: Zi Salvador M.D. on 11/01/2018 at 11:36 Approved by: Zi Salvador M.D. on 11/01/2018 at 11:39
== END ==
PROVIDERS: PCP Family Medicine; Visit Provider Physician Assistant Surgical
DX: M47.812 Spondylosis without myelopathy or radiculopathy, cervical region (principal); Z98.1 Arthrodesis status
CPT/HCPCS: 72125

== ENCOUNTER → 2019-09-23 14:44 | Outpatient (CLI) | payer MEDICARE, MEDICAID, SELFPAY ==
[2018-10-10 14:29] VITALS: BMI 29.9
[2019-09-23 15:19] LABS: Add Manual Diff / Slide Review NO; Basophils Absolute Auto 100 /uL (0-100); Basophils Percent Auto 0.9 % (0-2); Eosinophils Absolute Auto 300 /uL (0-450); Eosinophils Percent Auto 2.9 % (2-4); Hematocrit 40.6 % (36-46); Hemoglobin 13.3 g/dL (12.0-16.0); Lymphocytes Absolute Auto 2700 /uL (1100-4500); Lymphocytes Percent Auto 23.5 % (25-40); Mean Corpuscular HGB Conc 32.8 % (30-36); Mean Corpuscular Hemoglobin 31.1 PG (26-34); Mean Corpuscular Volume 94.7 fL (80-100); Monocytes Absolute Auto 600 /uL (0-900); Monocytes Percent Auto 4.8 % (3-14); Neutrophils Absolute Auto 7700 /uL (1500-7000); Neutrophils Percent Auto 67.9 % (50-75); Platelet Count 272 X10^3/uL (150-400); Red Blood Cell Count 4.28 X10^6/uL (4.0-5.2); Red Cell Distribution Width 13.7 % (11.6-14.8); White Blood Cell Count 11.4 X10^3/uL (4.5-11.0)
[2019-09-23 16:20] LABS: Hemoglobin A1C% w Est Avg Glu 6.3 % (4.0-6.0)
[2019-09-23 16:47] LABS: Alanine Aminotransferase 16 IU/L (<35); Albumin 4.8 g/dL (3.5-5.0); Albumin Globulin Ratio 1.8 (1.0-2.8); Alkaline Phosphatase 93 U/L (38-126); Aspartate Aminotransferase 22 IU/L (14-36); BUN Creatinine Ratio 19.5 (6-22); Bilirubin Total 0.4 mg/dL (0.2-1.3); Blood Urea Nitrogen 26 mg/dL (7-17); Calcium 9.8 mg/dL (8.4-10.2); Carbon Dioxide 25 mmol/L (22-32); Chloride 99 mmol/L (98-107); Estimated Glomerular Filt Rate 40.7 mL/min (>60); Globulin 2.6 g/dL (1.7-4.1); Glucose 107 mg/dL (80-110); HEMOLYSIS < 15 (0-50); Potassium 4.3 mmol/L (3.4-5.1); Sodium 136 mmol/L (137-145); Total Protein 7.4 g/dL (6.3-8.2)
== END ==
PROVIDERS: PCP Family Medicine; Referring Provider Family Medicine; Visit Provider Family Medicine
DX: N18.9 Chronic kidney disease, unspecified (principal); Z79.899 Other long term (current) drug therapy; E11.9 Type 2 diabetes mellitus without complications
CPT/HCPCS: 36415; 80053; 83036; 85025

== ENCOUNTER → 2020-01-27 11:23 | Outpatient (CLI) | payer MEDICARE, MEDICAID, SELFPAY ==
[2018-10-10 14:29] VITALS: BMI 29.9
--- NOTE | 2020-01-27 | DI.MRI.S_ITS ---
PROCEDURE: MR THORACIC SPINE WO CON INDICATIONS: Spondylosis without myelopathy or radiculopathy, t TECHNIQUE: Noncontrast sagittal T1 spine echo and T2 fast spin echo, sagittal STIR, axial T1 and T2 fast spin echo through the thoracic spine. COMPARISON: [facility] [place], CR, XR CERVICAL SPINE 2 OR 3 VIEWS, 02/07/2019, 15:23. [facility] [place], CR, XR LUMBAR SPINE 2 OR 3 VIEWS, 12/05/2019, 9:04. [facility], CR, CHEST 1 VIEW, 05/11/2017, 20:23. [facility], CT, CHEST/ABD/PEL WITH CONTRAST, 05/11/2017, 20:25. FINDINGS: Image quality: Diagnostic, with note made of motion artifact. Alignment and Curvature: There is normal bony alignment. Bone Marrow: Marrow is of normal overall signal. No acute vertebral body compression fractures. Minimal anterior wedge deformities are seen involving T3 and T4. Spinal Cord: Visualized spinal cord is normal in size and signal. Paraspinous Soft Tissues: No paravertebral masses. Miscellaneous: At the T6-T7 level, there is a central/right disc protrusion, as on series 7, image 20. Mild central canal narrowing is seen, with moderate mass effect upon the ventral spinal cord. No significant neural foraminal narrowing is seen. At T7-T8, there is a mild central disc protrusion seen. Minimal central canal narrowing is seen. No significant mass effect is seen upon the ventral spinal cord. No significant neural foraminal narrowing can be seen. At T8-T9, there is a central/right disc protrusion, with mild central canal narrowing and mild to moderate mass effect upon the ventral spinal cord, as on series 7 image 26. No significant neural foraminal narrowing can be seen. At T8-T9, there is a central disc extrusion, with superior migration of the disc material, as on series 7 images 28 and 29, with mild to moderate central canal narrowing, with associated mass effect upon the ventral spinal cord. No significant neural foraminal narrowing can be seen. At T10-T11, there is a central disc osteophyte protrusion, with associated mass effect upon the ventral spinal cord, with mild to moderate central canal narrowing, as on series 7, image 34. Mild to moderate bilateral neural foraminal narrowing can be seen. At T11-T12, there is central disc bulge, with mild to moderate central canal narrowing and minimal mass effect upon ventral spinal cord. Mild to moderate bilateral neural foraminal narrowing can be seen. At T12-L1, there is a mild central/right disc protrusion, with mild central canal narrowing and minimal mass effect upon the ventral spinal cord, as on series 7, image 41. No significant neural foraminal narrowing can be seen. Milder degenerative changes are seen elsewhere. There is partial visualization of lower cervical spine fixation hardware. IMPRESSION: Multiple levels of thoracic spine disc protrusions can be seen, with associated central canal narrowing and mass effect upon the ventral spinal cord. Dictated by: Zi Salvador M.D. on 01/27/2020 at 11:14 Approved by: Zi Salvador M.D. on 01/27/2020 at 11:18
== END ==
PROVIDERS: PCP Family Medicine; Referring Provider Physical Medicine & Rehabilitation; Visit Provider Physical Medicine & Rehabilitation
DX: M47.814 Spondylosis without myelopathy or radiculopathy, thoracic region (principal); M51.24 Other intervertebral disc displacement, thoracic region; M48.02 Spinal stenosis, cervical region
CPT/HCPCS: 72146

== ENCOUNTER → 2020-05-14 08:18 | Outpatient (CLI) | payer MEDICARE, MEDICAID, SELFPAY ==
[2018-10-10 14:29] VITALS: BMI 29.9
[2020-05-14 09:02] LABS: Add Manual Diff / Slide Review NO; Basophils Absolute Auto 100 /uL (0-100); Basophils Percent Auto 0.7 % (0-2); Eosinophils Absolute Auto 200 /uL (0-450); Eosinophils Percent Auto 2.2 % (2-4); Hematocrit 34.8 % (36-46); Hemoglobin 11.5 g/dL (12.0-16.0); Lymphocytes Absolute Auto 2500 /uL (1100-4500); Lymphocytes Percent Auto 28.9 % (25-40); Mean Corpuscular Hemoglobin 31.2 PG (26-34); Mean Corpuscular Volume 94.6 fL (80-100); Monocytes Absolute Auto 400 /uL (0-900); Monocytes Percent Auto 4.6 % (3-14); Neutrophils Absolute Auto 5500 /uL (1500-7000); Neutrophils Percent Auto 63.6 % (50-75); Platelet Count 251 X10^3/uL (150-400); Red Blood Cell Count 3.68 X10^6/uL (4.0-5.2); Red Cell Distribution Width 14.4 % (11.6-14.8); White Blood Cell Count 8.7 X10^3/uL (4.5-11.0)
[2020-05-14 09:07] LABS: Alanine Aminotransferase 10 IU/L (<35); Albumin 3.9 g/dL (3.5-5.0); Albumin Globulin Ratio 1.4 (1.0-2.8); Alkaline Phosphatase 63 U/L (38-126); Aspartate Aminotransferase 21 IU/L (14-36); BUN Creatinine Ratio 23.3 (6-22); Bilirubin Total 0.1 mg/dL (0.2-1.3); Blood Urea Nitrogen 30 mg/dL (7-17); Calcium 8.8 mg/dL (8.4-10.2); Carbon Dioxide 23 mmol/L (22-32); Chloride 112 mmol/L (98-107); Estimated Glomerular Filt Rate 42.2 mL/min (>60); Globulin 2.7 g/dL (1.7-4.1); Glucose 96 mg/dL (80-110); HEMOLYSIS < 15 (0-50); Potassium 3.9 mmol/L (3.4-5.1); Sodium 143 mmol/L (137-145); Total Protein 6.6 g/dL (6.3-8.2)
== END ==
PROVIDERS: PCP Family Medicine; Referring Provider Nurse Practitioner; Visit Provider Nurse Practitioner
DX: H93.19 Tinnitus, unspecified ear (principal)
CPT/HCPCS: 36415; 80053; 85025

== ENCOUNTER 2020-08-08 06:56 | Observation (INO) | payer MEDICARE, MEDICAID, SELFPAY ==
[2018-10-10 14:29] VITALS: BMI 29.9
[2020-08-08] VITALS (19 sets, daily range): BP systolic 126–160; BP diastolic 60–99; PULSE 72–105; RESP 20–28; TEMP 36.1–37.3; O2SAT 92–97; BMI 27.9
--- NOTE | 2020-08-08 07:10 | ED.GENADULT ---
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 mediastinal or hilar adenopathy. Thoracic aorta is normal in caliber and enhancement. Esophagus is normal in caliber, without hiatal hernia. Bones and chest wall: Cervical spine fixation hardware is partially seen. No suspicious bony lesions. Age-appropriate bony degenerative changes are seen. No acute fractures are seen. Remote, healed left lateral rib fractures can be seen. Thyroid gland demonstrates no significant abnormality. No axillary or supraclavicular adenopathy. Abdomen: Visualized upper abdominal solid organs appear normal in the early arterial phase of enhancement. IMPRESSION: Negative for pulmonary embolism. Incidental note is made of: Emphysematous change Cervical spine fixation hardware Remote, healed left lateral rib fractures Dictated by: Zi Salvador M.D. on 08/08/2020 at 8:42 Approved by: Zi Salvador M.D. on 08/08/2020 at 8:46 CT scan - abdomen/pelvis: Radiologist's Impression: [address] [id number] Scan ReportSigned Patient: Margarette Park [facility]#: [id number]: 1960Acct:[id number]/Sex: 60 / FDate of Service: 08/08/20Loc: EDAccession Number: [id number] Procedure: CT abdomen pelvis w con Ordering Provider: Stefanie Thomas D.O. PROCEDURE: CT ABDOMEN PELVIS W CON INDICATIONS: abd distended, confusion, nausea and vomiting, shortness of breath TECHNIQUE: After the administration of intravenous contrast, 5 mm thick sections acquired from the diaphragm to the symphysis. 5 mm coronal and sagittal reformats were acquired. For radiation dose reduction, the following was used: automated exposure control, adjustment of mA and/or kV according to patient size. COMPARISON: [facility], CT, ABDOMEN/PELVIS WITHOUT CONTRAS, 12/27/2016, 12:28. [facility], CT, CHEST/ABD/PEL WITH CONTRAST, 05/11/2017, 20:25. [facility], CT, CT ANGIO CHEST PE PROTOCOL, 08/08/2020, 9:15. [facility], CT, CT HEAD/BRAIN WO CON, 08/08/2020, 8:20. [facility], CR, XR ACUTE ABDOMEN SERIES, 08/08/2020, 8:19. FINDINGS: Image quality: There is artifact associated with the metallic hardware. ABDOMEN: Lung bases: Lung bases are clear. Heart size is normal. Solid organs: Liver is normal in size and enhancement. Gallbladder wall is not thickened. Biliary system is non dilated. Pancreas enhances normally. Spleen is normal in size and enhancement. No adrenal nodules. Kidneys demonstrate normal size and enhancement, without hydronephrosis. Peritoneum and bowel: Mild wall thickening can be seen throughout the majority of the colon, although there is moderate wall thickening seen involving the cecum and the ascending colon. The distal sigmoid colon and the rectum do not appear to be involved. Minimal surrounding inflammatory changes are seen. No free fluid or air. A normal appendix is incidentally noted. Nodes and vessels: No retroperitoneal or mesenteric adenopathy by size criteria. Aorta and inferior vena cava are normal in size. Atherosclerotic calcification is noted. Miscellaneous: No ventral hernias. PELVIS: Genitourinary: Bladder wall thickness is normal. The uterus appears normal for age. No adnexal masses are seen. Miscellaneous: No inguinal hernias or adenopathy. Bones: Left proximal femur postoperative change is seen. No suspicious bony lesions. No vertebral body compression fractures. Mild levoconvex scoliotic curvature is noted. Age-appropriate bony degenerative changes are seen. IMPRESSION: Mild generalized colonic wall thickening can be seen, which is worst proximally. Please correlate with potential infectious and inflammatory causes of colitis, including C. difficile colitis. No findings of perforation or abscess can be seen. No dilated loops of bowel are seen. No ascites. Incidental note is made of: Normal appendix Left proximal humeral postoperative change Dictated by: Zi Salvador M.D. on 08/08/2020 at 8:46 Approved by: Zi Salvador M.D. on 08/08/2020 at 8:52 ECG Data Attestation: I personally reviewed and interpreted this ECG as follows: Prior ECG tracings: available for review Interpretation: Sinus rhythm rate of 92 MI 174 QRS 88 QTC 477. Nonspecific change. Patient has prior 09/24/2018. [facility] Narrative Medical decision making narrative: This is a 60-year-old female comes in with complaint of shortness of breath as well as confusion patient initially denies any abdominal pain but has some discomfort during cough and has some dry heaves after CT imaging when lying flat. She also seems distended on examination although her abdomen is soft and benign on examination. Patient's head CT does not show any acute changes. She had a fall but does not seem to have any obvious injury. Unclear if the fall was prior to or after her confusion. Patient does not have any clear acute neurologic changes on physical exam. She is confused and her roommate states that she seems more confused in the last 24 hours after starting her medication. One of these medications was baclofen which could cause some confusion which not cause shortness of breath. Methotrexate could potentially have some issues but with less than 12-24 hours of medication on board seems less likely. Patient's CBC has elevated neutrophils but otherwise normal. Chest and abdominal x-ray show no clear acute changes. ABG has a pH of 7.424 with pCO2 of 42 and a bicarb of 27 but does have a PaO2 of 52 on room air although her oxygen saturation in the department has not been we low. Chemistry show creatinine is at baseline with no acute electrolyte abnormalities. Glucose is only 153. Patient's ammonia is negative and patient denies any alcohol history. Total CK is elevated at 700 and patient's troponin is negative with a BNP of only 301. Procalcitonin is also negative and patient does have a mildly elevated D-dimer even after each adjustment. With patient's consultations of symptoms CT angio chest as well as abdomen pelvis was ordered. CT angiography is negative for acute pulmonary emboli. Patient's has emphysematous changes. CT abdomen pelvis does show some changes consistent with colitis which would fit with patient's abdominal discomfort. Discharge Plan Departure Patient Disposition: Admitted as Observation Clinical Impression: Confusion, Colitis, Acute exacerbation of chronic obstructive pulmonary disease Admit Date/Time: 08/08/20 12:03 Admit Provider: Jonh Terry
--- NOTE | 2020-08-08 07:20 | DI.RAD.S_ITS ---
PROCEDURE: XR ACUTE ABDOMEN SERIES INDICATIONS: confusion, short of breath, abd distended. TECHNIQUE: One view chest and two views of the abdomen were acquired. COMPARISON: [facility], CT, CHEST/ABD/PEL WITH CONTRAST, 05/11/2017, 20:25. [facility], CT, CT HEAD/BRAIN WO CON, 08/08/2020, 8:20. [facility], CR, CHEST 1 VIEW, 05/11/2017, 20:23. FINDINGS: Surgical changes and devices: Cervical spine fixation hardware is seen. There is left proximal femur hardware partially seen. Chest: Lungs are clear. Heart size is normal. Atherosclerotic calcification of the aortic arch is noted. No pleural effusions. No pneumoperitoneum. Abdomen: Bowel gas pattern is normal. No suspicious calcifications. Visualized solid organ contours appear normal. Bones: No suspicious bony lesions. Remote left-sided rib fractures are seen. Age-appropriate bony degenerative changes are seen. Mild levoconvex scoliotic curvature is noted. IMPRESSION: A nonobstructive bowel gas pattern is seen. If clinically appropriate, please consider a repeat plain film study or a dedicated CT of the abdomen and pelvis, if the patient's symptoms persist or worsen. Clear lungs. Postoperative and degenerative changes are seen. Remote left-sided rib fractures noted. Dictated by: Zi Salvador M.D. on 08/08/2020 at 7:56 Approved by: iZ Salvador M.D. on 08/08/2020 at 7:58
[2020-08-08] MEDS: ALBUTEROL/IPRATROPIUM 3 ML AMPUL INH ×2 (07:30→19:15)
--- NOTE | 2020-08-08 07:33 | DI.CT.S_ITS ---
PROCEDURE: CT HEAD/BRAIN WO CON INDICATIONS: confusion TECHNIQUE: Noncontrast 4.5 mm thick angled axial sections acquired from the foramen magnum to the vertex, with coronal and sagittal reformats. For radiation dose reduction, the following was used: automated exposure control, adjustment of mA and/or kV according to patient size. COMPARISON: [facility], CR, XR ACUTE ABDOMEN SERIES, 08/08/2020, 8:19. [facility], CT, HEAD WITHOUT CONTRAST, 05/11/2017, 20:25. FINDINGS: Image quality: Mild streak artifact can be seen through the skull base. Mild motion artifact can be seen. CSF spaces: Basal cisterns are patent. No extra-axial fluid collections. The ventricles are symmetric in size and shape. Brain: No intracranial bleeds or masses. There is cerebral volume loss for age, with resultant ventricular and sulcal prominence. There are periventricular and deep white matter chronic small vessel ischemic changes. There is intracranial internal carotid artery atherosclerosis. Skull and face: Calvarium and visualized facial bones appear intact, without suspicious lesions. Sinuses: Visualized sinuses and mastoids are clear. IMPRESSION: Limited study, without an imaging explanation found for the patient's presenting symptoms. Dictated by: Zi Salvador M.D. on 08/08/2020 at 7:54 Approved by: Zi Salvador M.D. on 08/08/2020 at 7:55
--- NOTE | 2020-08-08 07:42 | RT ---
Pt coughed beautiful thick, yellow white sputum sample, and it was sent to the lab, per order from Dr Thomas.
[2020-08-08 08:12] LABS: HCO3 ABG 28 mmol/L (22-26); Oxygen Saturation ABG 87 % (95-100); PO2 ABG 52 mmHg (80-100); TCO2 ABG 29 mmol/L (21-31); pH ABG 7.42 (7.35-7.45)
[2020-08-08 08:13] LABS: Fractionated Inspired Oxygen 21
[2020-08-08 08:34] LABS: Add Manual Diff / Slide Review NO; Basophils Absolute Auto 100 /uL (0-100); Basophils Percent Auto 0.5 % (0-2); Eosinophils Absolute Auto 200 /uL (0-450); Eosinophils Percent Auto 2.4 % (2-4); Hematocrit 41.4 % (36-46); Hemoglobin 13.6 g/dL (12.0-16.0); Lymphocytes Absolute Auto 1200 /uL (1100-4500); Lymphocytes Percent Auto 12.3 % (25-40); Mean Corpuscular Hemoglobin 30.9 PG (26-34); Mean Corpuscular Volume 93.6 fL (80-100); Monocytes Absolute Auto 300 /uL (0-900); Monocytes Percent Auto 3.3 % (3-14); Neutrophils Absolute Auto 8200 /uL (1500-7000); Neutrophils Percent Auto 81.5 % (50-75); Platelet Count 246 X10^3/uL (150-400); Red Blood Cell Count 4.42 X10^6/uL (4.0-5.2); Red Cell Distribution Width 14.6 % (11.6-14.8); White Blood Cell Count 10.1 X10^3/uL (4.5-11.0)
[2020-08-08 08:41] LABS: D Dimer 326 ng/mL (<230); Lactate (Lactic Acid) 1.5 mmol/L (0.7-2.1); Lipase 131 U/L (23-300)
[2020-08-08 08:42] LABS: Ammonia (NH3) < 9 umol/L (9-30)
[2020-08-08 08:43] LABS: Alanine Aminotransferase 33 IU/L (<35); Albumin 4.6 g/dL (3.5-5.0); Albumin Globulin Ratio 1.4 (1.0-2.8); Alkaline Phosphatase 109 U/L (38-126); Aspartate Aminotransferase 39 IU/L (14-36); BUN Creatinine Ratio 16.4 (6-22); Bilirubin Total 0.4 mg/dL (0.2-1.3); Blood Urea Nitrogen 20 mg/dL (7-17); Carbon Dioxide 28 mmol/L (22-32); Chloride 104 mmol/L (98-107); Estimated Glomerular Filt Rate 44.8 mL/min (>60); Globulin 3.4 g/dL (1.7-4.1); Glucose 153 mg/dL (80-110); HEMOLYSIS < 15 (0-50); Potassium 4.6 mmol/L (3.4-5.1); Sodium 141 mmol/L (137-145)
[2020-08-08 08:44] LABS: Creatine Kinase 765 U/L (30-135); Magnesium 2.3 mg/dL (1.6-2.3)
[2020-08-08 08:46] LABS: PTT Partial Thromboplastin Tim 34 SECONDS (26.4-36.2); Prothrombin Time 10.9 SECONDS (10.1-12.7)
[2020-08-08] MEDS: methylPREDNISolone 125 MG/2 ML VIAL IV (08:46)
[2020-08-08] MEDS: ONDANSETRON 4 MG/2 ML INJ IV ×2 (08:47→12:21)
[2020-08-08 08:55] LABS: NT-proBNP (BNP-Adult 18+) 301 pg/mL (<125); Troponin I < 0.012 ng/mL (0.01-0.034)
[2020-08-08 08:58] LABS: CKMB % Relative Index 0.5 % (1.5-5.0); Creatine Kinase MB 3.81 ng/mL (<2.37)
[2020-08-08 08:59] LABS: Procalcitonin 0.07 ng/mL (<0.5)
--- NOTE | 2020-08-08 09:05 | DI.CT.S_ITS ---
PROCEDURE: CT ANGIO CHEST PE PROTOCOL INDICATIONS: Short of breath, hx COPD, dimer elevated, abd distended, n/v TECHNIQUE: After the administration of intravenous contrast, 2 mm thick sections acquired from the pulmonary apices to the posterior costophrenic angles. 3-dimensional maximum intensity projection (MIP) coronal and sagittal reformats were then acquired through the thorax. For radiation dose reduction, the following was used: automated exposure control, adjustment of mA and/or kV according to patient size. COMPARISON: [facility], CT, PE STUDY (CTA CHEST), 04/06/2017, 8:36. [facility], CT, CHEST/ABD/PEL WITH CONTRAST, 05/11/2017, 20:25. [facility], CT, CT ABDOMEN PELVIS W CON, 08/08/2020, 9:15. [facility], CT, CT HEAD/BRAIN WO CON, 08/08/2020, 8:20. FINDINGS: Image quality: Excellent. Pulmonary arteries: Pulmonary arteries are normal in size, and demonstrate no intraluminal filling defects to suggest central pulmonary embolism. Lungs and pleura: Centrilobular emphysematous changes are seen. These are more prominent at the lung apices than at the lung bases. No focal infiltrates are seen. No pleural effusions or pneumothorax. Central and peripheral airways are patent. Mediastinum: Heart size is normal, without pericardial effusion. No mediastinal or hilar adenopathy. Thoracic aorta is normal in caliber and enhancement. Esophagus is normal in caliber, without hiatal hernia. Bones and chest wall: Cervical spine fixation hardware is partially seen. No suspicious bony lesions. Age-appropriate bony degenerative changes are seen. No acute fractures are seen. Remote, healed left lateral rib fractures can be seen. Thyroid gland demonstrates no significant abnormality. No axillary or supraclavicular adenopathy. Abdomen: Visualized upper abdominal solid organs appear normal in the early arterial phase of enhancement. IMPRESSION: Negative for pulmonary embolism. Incidental note is made of: Emphysematous change Cervical spine fixation hardware Remote, healed left lateral rib fractures Dictated by: Zi Salvador M.D. on 08/08/2020 at 8:42 Approved by: Zi Salvador M.D. on 08/08/2020 at 8:46
--- NOTE | 2020-08-08 09:05 | DI.CT.S_ITS ---
PROCEDURE: CT ABDOMEN PELVIS W CON INDICATIONS: abd distended, confusion, nausea and vomiting, shortness of breath TECHNIQUE: After the administration of intravenous contrast, 5 mm thick sections acquired from the diaphragm to the symphysis. 5 mm coronal and sagittal reformats were acquired. For radiation dose reduction, the following was used: automated exposure control, adjustment of mA and/or kV according to patient size. COMPARISON: [facility], CT, ABDOMEN/PELVIS WITHOUT CONTRAS, 12/27/2016, 12:28. [facility], CT, CHEST/ABD/PEL WITH CONTRAST, 05/11/2017, 20:25. [facility], CT, CT ANGIO CHEST PE PROTOCOL, 08/08/2020, 9:15. [facility], CT, CT HEAD/BRAIN WO CON, 08/08/2020, 8:20. [facility], CR, XR ACUTE ABDOMEN SERIES, 08/08/2020, 8:19. FINDINGS: Image quality: There is artifact associated with the metallic hardware. ABDOMEN: Lung bases: Lung bases are clear. Heart size is normal. Solid organs: Liver is normal in size and enhancement. Gallbladder wall is not thickened. Biliary system is non dilated. Pancreas enhances normally. Spleen is normal in size and enhancement. No adrenal nodules. Kidneys demonstrate normal size and enhancement, without hydronephrosis. Peritoneum and bowel: Mild wall thickening can be seen throughout the majority of the colon, although there is moderate wall thickening seen involving the cecum and the ascending colon. The distal sigmoid colon and the rectum do not appear to be involved. Minimal surrounding inflammatory changes are seen. No free fluid or air. A normal appendix is incidentally noted. Nodes and vessels: No retroperitoneal or mesenteric adenopathy by size criteria. Aorta and inferior vena cava are normal in size. Atherosclerotic calcification is noted. Miscellaneous: No ventral hernias. PELVIS: Genitourinary: Bladder wall thickness is normal. The uterus appears normal for age. No adnexal masses are seen. Miscellaneous: No inguinal hernias or adenopathy. Bones: Left proximal femur postoperative change is seen. No suspicious bony lesions. No vertebral body compression fractures. Mild levoconvex scoliotic curvature is noted. Age-appropriate bony degenerative changes are seen. IMPRESSION: Mild generalized colonic wall thickening can be seen, which is worst proximally. Please correlate with potential infectious and inflammatory causes of colitis, including C. difficile colitis. No findings of perforation or abscess can be seen. No dilated loops of bowel are seen. No ascites. Incidental note is made of: Normal appendix Left proximal humeral postoperative change Dictated by: Zi Salvador M.D. on 08/08/2020 at 8:46 Approved by: Zi Salvador M.D. on 08/08/2020 at 8:52
[2020-08-08 09:18] LABS: COVID19 - ADMIT (NP swab/PCR) Negative (Negative)
[2020-08-08] MEDS: SODIUM CHLORIDE 0.9% 1,000 ML 150 ML IV (09:33)
[2020-08-08] MEDS: NICOTINE 21 MG PATCH TOP (10:59)
--- NOTE | 2020-08-08 14:08 | PC.NURSE ---
Assumed care of patient, patient on 1 L NC, 98%, lungs tight, expiratory wheezing noted. Patient endorses SOB with activity, currently dangling at bedside, increased WOB with conversation. BT active x 4, patient reports last BM 08/08. Patient denies chest pain. Bilateral twitching noted in extremities. Patient reports this is new. Numbness/tingling noted in bilat extremities as well. Patient instructed to call before getting OOB, patient verbalizes understanding. Bed alarm on.
[2020-08-08] MEDS: ALBUTEROL 2.5 MG/3 ML NEB (ADULT) INH (15:39)
[2020-08-08] MEDS: AZITHROMYCIN 500 MG in DEXTROSE 5% IN WATER 250 ML IV (16:11)
[2020-08-08 17:02] LABS: Bacteria Urine None Seen
[2020-08-08 17:14] LABS: UR Morphine/Opiate cutoff 300 Negative (Negative); Ur Creatinine Normal (Normal); Ur Specific Gravity Normal (Normal); Urine Amphetamines Negative (Negative); Urine Barbiturates Negative (Negative); Urine Benzodiazepines Negative (Negative); Urine Cocaine Negative (Negative); Urine MDMA Negative (Negative); Urine Methadone Negative (Negative); Urine Methamphetamines Negative (Negative); Urine Oxycodone Negative (Negative); Urine Phencyclidine Negative (Negative); Urine Tetrahydrocannabinol Positive (Negative); Urine Tricyclic Antidepressant Positive (Negative); Urine pH Normal (Normal)
[2020-08-08 17:16] LABS: Appearance Urine UA CLEAR; Bilirubin Urine UA NEGATIVE (NEGATIVE); Color Urine UA YELLOW; Glucose Urine UA NEGATIVE (Negative); Ketones Urine UA NEGATIVE (NEGATIVE); Leukocyte Esterase Urine UA NEGATIVE (NEGATIVE); Nitrite Urine UA NEGATIVE (Negative); Occult Blood Urine UA 2+ (Negative); Protein Urine UA TRACE (Negative); Urobilinogen Urine UA 0.2 E.U./dL (0.2)
[2020-08-08 17:17] LABS: Culture Indicated Urine Cult Not Indicated; RBC Urine 1-5/HPF (0-5/HPF); Squamous Epithelial Cell Urine 5-10 /HPF (0-5/HPF); WBC Urine 0-1/HPF (0-5/HPF)
[2020-08-08] MEDS: BUDESONIDE 0.5 MG/2 ML NEB INH (19:15)
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
[2020-08-08] MEDS: ATORVASTATIN 20 MG TABLET PO (21:19)
[2020-08-08] MEDS: ACETAMINOPHEN 325 MG TABLET 650 MG PO (21:19)
[2020-08-09] VITALS (7 sets, daily range): BP systolic 117–145; BP diastolic 76–95; PULSE 59–78; RESP 16–24; TEMP 36.8–37.2; O2SAT 95–98
[2020-08-09 06:12] LABS: Add Manual Diff / Slide Review NO; Basophils Absolute Auto 0 /uL (0-100); Basophils Percent Auto 0.4 % (0-2); Eosinophils Absolute Auto 0 /uL (0-450); Hematocrit 36.1 % (36-46); Hemoglobin 11.8 g/dL (12.0-16.0); Lymphocytes Absolute Auto 1200 /uL (1100-4500); Lymphocytes Percent Auto 11.1 % (25-40); Mean Corpuscular HGB Conc 32.8 % (30-36); Mean Corpuscular Hemoglobin 30.9 PG (26-34); Mean Corpuscular Volume 94.2 fL (80-100); Monocytes Absolute Auto 400 /uL (0-900); Monocytes Percent Auto 3.6 % (3-14); Neutrophils Absolute Auto 9300 /uL (1500-7000); Neutrophils Percent Auto 84.9 % (50-75); Platelet Count 214 X10^3/uL (150-400); Red Blood Cell Count 3.84 X10^6/uL (4.0-5.2); Red Cell Distribution Width 14.6 % (11.6-14.8); White Blood Cell Count 10.9 X10^3/uL (4.5-11.0)
[2020-08-09 06:20] LABS: Creatine Kinase 554 U/L (30-135)
[2020-08-09 06:21] LABS: BUN Creatinine Ratio 21.6 (6-22); Blood Urea Nitrogen 25 mg/dL (7-17); Calcium 9.6 mg/dL (8.4-10.2); Carbon Dioxide 27 mmol/L (22-32); Chloride 102 mmol/L (98-107); Estimated Glomerular Filt Rate 47.5 mL/min (>60); Glucose 125 mg/dL (80-110); HEMOLYSIS < 15 (0-50); Potassium 4.4 mmol/L (3.4-5.1); Sodium 137 mmol/L (137-145)
[2020-08-09] MEDS: ALBUTEROL/IPRATROPIUM 3 ML AMPUL INH (07:34)
[2020-08-09] MEDS: BUDESONIDE 0.5 MG/2 ML NEB INH (07:34)
--- NOTE | 2020-08-09 09:06 | CM.DANOTE ---
DCP: Case received, EMR reviewed and met with patient. Introduced self and role. Was able to obtain information regarding patient's baseline activity level, as well as her current living situation. DCP assessment completed with information currently available. Patient is a 60 year old female who admitted yesterday afternoon to the care of the hospitalist team. PCP: Dr. Wahl. Payer: confirmed: Medicare/Medicaid. Patient came to the hospital via private vehicle due to concerns of a possible medication reaction. She was also noted to have increased shortness of breath, as well as memory issues. Patient had recently started methotrexate, which patient feels that was part of the cause, prescribed by her underwear cutter in [facility]. She also confirmed that she sees Dr. Wahl as primary care provider. Patient holds diagnosis of acute resp distress secondary to COPD. Patient smokes a pack of cigarettes a day. Met with patient in her room. She was sitting up in bed, alert and oriented. She resides in [place] with her room mate (friend), Dede. Patient indicated that she no longer drives, and Dede takes her to her appointments. She does use a FWW at home when needed. Her room mate also helps with meals. Patient stated, she does not use home oxygen, although she probably could use it. Patient also had a recent fall at home. P: DCP to continue to follow and will be available for any resources needed. Patient should be able to go home when she is medically stable. Will discuss further at team rounds. Margoth Mendez RN/[employer]
[2020-08-09] MEDS: lisinopriL 20 MG TABLET PO (09:41)
[2020-08-09] MEDS: NICOTINE 7 MG PATCH TOP (09:41)
[2020-08-09] MEDS: FOLIC ACID 1 MG TABLET PO (09:41)
[2020-08-09] MEDS: predniSONE 20 MG TABLET 40 MG PO (09:41)
[2020-08-09] MEDS: ALBUTEROL 2.5 MG/3 ML NEB (ADULT) INH (11:22)
--- NOTE | 2020-08-09 13:02 | PC.NURSE ---
Patient educated about new medications, and given pamphlets to read about medications, educated about smoking cessation, COPD, diet, activity, medications to stop, and when to follow up w/ primary care doctor. Patient acknowledged understanding of all discharge instructions. Patient left facility with all belongings and with paper prescriptions. Patient left facility via private vehicle and room mate in wheelchair.
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
== END 2020-08-09 11:30 | disposition home or self-care (01) ==
LOC: ED 12:03 → AC 12:04
PROVIDERS: Admitting Provider Internal Medicine; Emergency Provider Emergency Medicine; PCP Family Medicine; Referring Provider Emergency Medicine; Visit Provider Internal Medicine
DX: J44.1 Chronic obstructive pulmonary disease with (acute) exacerbation (principal); R06.03 Acute respiratory distress; G93.41 Metabolic encephalopathy; E78.5 Hyperlipidemia, unspecified; G47.33 Obstructive sleep apnea (adult) (pediatric); G89.4 Chronic pain syndrome; E11.9 Type 2 diabetes mellitus without complications; K21.9 Gastro-esophageal reflux disease without esophagitis; I12.9 Hypertensive chronic kidney disease with stage 1 through stage 4 chronic kidney disease, or unspecified chronic kidney disease; N18.30 Chronic kidney disease, stage 3 unspecified; L40.9 Psoriasis, unspecified; F17.210 Nicotine dependence, cigarettes, uncomplicated; F12.929 Cannabis use, unspecified with intoxication, unspecified; Z20.822 Contact with and (suspected) exposure to COVID-19
CPT/HCPCS: 36415; 36600; 70450; 71275; 74022; 74177; 80048; 80053; 80305; 81001; 82140; 82550; 82553; 82805; 83605; 83690; 83735; 83880; 84145; 84484; 85025; 85379; 85610; 85730; 87040; 87045; 87070; 87205; 87635; 87899; 93005; 93010; 94640; 94760; 96361; 96365; 96366; 96375; 96376; 99285; 99406; C9803; G0378; J2405; J2930; J7613; Q9967